=== PATIENT | male | born 1995 | race Caucasian/White ===

== ENCOUNTER 2017-01-03 11:30 | Emergency (ER) | payer MEDICAID ==
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
== END 2017-01-03 12:30 | disposition home or self-care (01) ==
LOC: ER 11:30
DX: S10.93XA Contusion of unspecified part of neck, initial encounter (principal); S60.511A Abrasion of right hand, initial encounter; F17.200 Nicotine dependence, unspecified, uncomplicated; Y04.8XXA Assault by other bodily force, initial encounter; Y93.89 Activity, other specified; Y92.89 Other specified places as the place of occurrence of the external cause; Y99.8 Other external cause status
CPT/HCPCS: X7704; Z7502